=== PATIENT | female | born 1960 | race Caucasian/White ===

== ENCOUNTER 2020-01-12 12:57 | Emergency (ER) | payer BC, OTHER ==
[~2020-01-12] VITALS: Ht 154.9 cm; Wt 58.1 kg
[2020-01-12 13:04] VITALS: BP 124/68
--- NOTE | 2020-01-12 13:53 | NUR ---
Patient discharged to home in stable condition. Written and verbal after care instructions given. Patient verbalizes understanding of instruction. Pt ambulatory with a steady gait w/ an aide of crutches
== END 2020-01-12 13:53 | disposition home or self-care (01) ==
LOC: ER 13:09
DX: S92.352A Displaced fracture of fifth metatarsal bone, left foot, initial encounter for closed fracture (principal); G43.909 Migraine, unspecified, not intractable, without status migrainosus; I10 Essential (primary) hypertension; E78.5 Hyperlipidemia, unspecified; J45.909 Unspecified asthma, uncomplicated; Z98.890 Other specified postprocedural states; W22.8XXA Striking against or struck by other objects, initial encounter; Y93.89 Activity, other specified; Y92.89 Other specified places as the place of occurrence of the external cause; Y99.8 Other external cause status
CPT/HCPCS: 73660-TC

== ENCOUNTER 2021-06-13 12:58 | Emergency (ER) | payer BC, OTHER ==
[~2021-06-13] VITALS: Ht 154.9 cm; Wt 53.1 kg
[2021-06-13] MEDS ORDERED: TDAP [DIPH/PERTUSSIS/TET] 0.5 ML VIAL IM ONE ×3 (13:30→13:48)
--- NOTE | 2021-06-13 14:57 | NUR ---
Left Forearm cleaned w/NS- Steri- strip applied and dressed w/non adaptic covered with bandage and secured w/netting. Gor Discharge- ACI given. Patient discharged to home in stable condition. Written and verbal after care instructions given. Patient verbalizes understanding of instruction.
[2021-06-13 14:58] VITALS: BP 116/54
== END 2021-06-13 14:59 | disposition home or self-care (01) ==
LOC: ER 13:02
DX: S51.812A Laceration without foreign body of left forearm, initial encounter (principal); S09.90XA Unspecified injury of head, initial encounter; G43.909 Migraine, unspecified, not intractable, without status migrainosus; I10 Essential (primary) hypertension; E78.5 Hyperlipidemia, unspecified; J45.909 Unspecified asthma, uncomplicated; Z98.890 Other specified postprocedural states; W01.198A Fall on same level from slipping, tripping and stumbling with subsequent striking against other object, initial encounter; Y93.01 Activity, walking, marching and hiking; Y92.89 Other specified places as the place of occurrence of the external cause; Y99.8 Other external cause status
CPT/HCPCS: 70450-TC; 72125-TC; 90715

== ENCOUNTER 2021-10-09 14:16 | Emergency (ER) | payer BC, OTHER ==
[~2021-10-09] VITALS: Ht 152.4 cm; Wt 53.5 kg
--- NOTE | 2021-10-09 14:40 | NUR ---
BIBS W/ C/O RIGHT ARM AND RIGHT HIP PAIN, S/P GLF. PER PATIENT, SHE WAS WALKING FROM BATHROOM TO BEDROOM WHEN SHE FELL. DENIES HITTING HEAD AND DENIES LOC.
--- NOTE | 2021-10-09 14:42 | NUR ---
TO ER BED 10, PATIENT AMBULATORY.
--- NOTE | 2021-10-09 14:58 | NUR ---
DR SIERRA AT BEDSIDE W/ PATIENT.
[2021-10-09] MEDS ORDERED: KETOROLAC TROMETHAMINE INJ 30 MG/ML VIAL ONE (15:09)
[2021-10-09] MEDS ORDERED: KETOROLAC TROMETHAMINE INJ 60 MG/2 ML VIAL IM ONE (15:30)
[2021-10-09 16:08] VITALS: BP 130/80
== END 2021-10-09 16:26 | disposition home or self-care (01) ==
LOC: ER 14:27
DX: S40.011A Contusion of right shoulder, initial encounter (principal); S50.11XA Contusion of right forearm, initial encounter; R10.2 Pelvic and perineal pain; G43.909 Migraine, unspecified, not intractable, without status migrainosus; E78.5 Hyperlipidemia, unspecified; J45.909 Unspecified asthma, uncomplicated; Z87.442 Personal history of urinary calculi; W18.30XA Fall on same level, unspecified, initial encounter; Y93.01 Activity, walking, marching and hiking; Y92.89 Other specified places as the place of occurrence of the external cause; Y99.8 Other external cause status
CPT/HCPCS: 72020; 72170; 73030; 73090; 96372; 99284; J1885

== ENCOUNTER 2023-01-02 13:41 | Emergency (ER) | payer BC, MEDICAID ==
[~2023-01-02] VITALS: Ht 154.9 cm; Wt 54.4 kg
[2023-01-02 14:08] VITALS: BP 135/95; TEMP 98.1; O2SAT 98
[2023-01-02] MEDS ORDERED: LIDO15CR11 TP (15:47)
== END 2023-01-02 15:55 | disposition home or self-care (01) ==
LOC: ER 13:47
DX: M53.3 Sacrococcygeal disorders, not elsewhere classified (principal); I10 Essential (primary) hypertension; E78.5 Hyperlipidemia, unspecified; G43.909 Migraine, unspecified, not intractable, without status migrainosus; J45.909 Unspecified asthma, uncomplicated; Z87.442 Personal history of urinary calculi
CPT/HCPCS: 72192-TC

== ENCOUNTER 2024-01-04 09:16 | Emergency (ER) | payer BC, MEDICAID ==
[~2024-01-04] VITALS: Ht 152.4 cm; Wt 49.0 kg
[~2024-01-04 09:16] MED LIST: LIDO15CR11 TP
[2024-01-04 11:28] VITALS: BP 136/76; TEMP 98.9; O2SAT 98
== END 2024-01-04 11:28 | disposition home or self-care (01) ==
LOC: ER 09:33
DX: S90.112A Contusion of left great toe without damage to nail, initial encounter (principal); I10 Essential (primary) hypertension; G43.909 Migraine, unspecified, not intractable, without status migrainosus; E78.5 Hyperlipidemia, unspecified; J45.909 Unspecified asthma, uncomplicated; Z87.442 Personal history of urinary calculi; Z87.39 Personal history of other diseases of the musculoskeletal system and connective tissue; Z88.8 Allergy status to other drugs, medicaments and biological substances; W01.0XXA Fall on same level from slipping, tripping and stumbling without subsequent striking against object, initial encounter; Y93.01 Activity, walking, marching and hiking; Y92.89 Other specified places as the place of occurrence of the external cause; Y99.8 Other external cause status
CPT/HCPCS: 73660-TC

== ENCOUNTER 2024-08-21 23:25 | Inpatient (IN) | payer BC, MEDICAID ==
[~2024-08-21] VITALS: Ht 152.4 cm; Wt 48.5 kg
[2024-08-22] MEDS: IV NS 0.9% 500 ML BAG IV ONE
[2024-08-22 00:24] LABS: BASOPHILS % (AUTO) 0.3 % (0.0-2.0); HEMATOCRIT 39 % (33-45); HEMOGLOBIN 13.8 g/dL (11.5-14.8); LYMPHOCYTES # (AUTO) 1.1 K/uL (0.8-4.8); LYMPHOCYTES % (AUTO) 11.1 % (20.0-44.0); MEAN CORPUSCULAR HEMOGLOBIN 35 PG (26.0-33.0); MEAN CORPUSCULAR HGB CONC 36 g/dl (31.0-36.0); MEAN CORPUSCULAR VOLUME 98 fL (82-100); MONOCYTES # (AUTO) 0.8 K/uL (0.1-1.30); MONOCYTES % (AUTO) 8.8 % (2.0-12.0); NEUTROPHILS # (AUTO) 7.7 K/uL (1.8-8.9); NEUTROPHILS % (AUTO) 79.8 % (43.0-81.0); PLATELET COUNT (AUTO) 180 K/uL (150-450); RED BLOOD CELL COUNT(AUTO) 3.98 MIL/uL (4.0-5.2); WHITE BLOOD COUNT (AUTO) 9.6 K/uL (4.3-11.0)
[2024-08-22] MEDS: ASPIRIN 325 MG TABLET PO ONE (01:00)
[2024-08-22 01:01] LABS: CALCIUM, SERUM 9.5 mg/dL (8.5-10.1); CARBON DIOXIDE 27 mmol/L (21-32); CHLORIDE 101 mmol/L (98-107); CREATININE 0.8 mg/dL (0.6-1.3); GLUCOSE 76 mg/dL (74-106); INR 1.01 (0.91-1.10); PARTIAL THROMBOPLASTIN TIME 28.2 SEC (24.3-34.3); POTASSIUM 3.8 mmol/L (3.5-5.1); PROTHROMBIN TIME 10.7 SECS (9.2-11.1); SODIUM SERUM 137 mmol/L (136-145); UREA NITROGEN, BLOOD 22 mg/dL (7-18)
[2024-08-22 01:07] LABS: ALANINE AMINOTRANSFERASE 65 U/L (12-78); ALBUMIN 3.4 g/dL (3.4-5.0); ALKALINE PHOSPHATASE 47 U/L (46-116); ASPARTATE AMINOTRANSFERASE 234 U/L (15-37); BILIRUBIN,DIRECT 0.2 mg/dL (0.0-0.2); BILIRUBIN,TOTAL 0.8 mg/dL (0.2-1.0)
[2024-08-22] MEDS ORDERED: ASPIRIN 325 MG TABLET ONE (01:25)
[2024-08-22] MEDS ORDERED: MORPHINE SULFATE INJ 2 MG/ML DISP.SYRIN ONE (02:19)
[2024-08-22] MEDS: MORPHINE SULFATE INJ 2 MG/ML DISP.SYRIN IV ONE (02:25)
[2024-08-22] MEDS ORDERED: MAGNESIUM HYDROXIDE 30 ML UDC PO PRN (02:30)
[2024-08-22] MEDS ORDERED: MAG HYDROX/AL HYDROX/SIMETH 30 ML UDC PO PRN (02:30)
[2024-08-22] MEDS ORDERED: Z GUARD REMEDY 4 OZ OINT TP PRN (02:30)
[2024-08-22] MEDS ORDERED: ONDANSETRON HCL/PF 4 MG/2 ML VIAL IVP PRN (02:30)
[2024-08-22] MEDS ORDERED: GABA-536 PO (04:18)
[2024-08-22] MEDS: IV NS 0.9% 1,000 ML IV SCH (04:23)
[2024-08-22] MEDS ORDERED: DIVA-76 PO (05:27)
[2024-08-22] MEDS ORDERED: METO25TA4 PO (05:27)
[2024-08-22] MEDS ORDERED: SIMV-49 PO (05:27)
[2024-08-22] MEDS ORDERED: LEVO75TA7 PO (05:27)
[2024-08-22] MEDS: ACETAMINOPHEN 325 MG TABLET PO PRN (06:15)
[2024-08-22 07:30] VITALS: BP 117/54; TEMP 97.9; O2SAT 97
[2024-08-22 07:50] LABS: BASOPHILS % (AUTO) 0.5 % (0.0-2.0); EOSINOPHILS % (AUTO) 0.1 % (0.0-6.0); HEMATOCRIT 34 % (33-45); LYMPHOCYTES # (AUTO) 1.1 K/uL (0.8-4.8); LYMPHOCYTES % (AUTO) 17.1 % (20.0-44.0); MEAN CORPUSCULAR HEMOGLOBIN 35 PG (26.0-33.0); MEAN CORPUSCULAR HGB CONC 35 g/dl (31.0-36.0); MEAN CORPUSCULAR VOLUME 98 fL (82-100); MONOCYTES # (AUTO) 0.6 K/uL (0.1-1.30); MONOCYTES % (AUTO) 8.7 % (2.0-12.0); NEUTROPHILS # (AUTO) 4.8 K/uL (1.8-8.9); NEUTROPHILS % (AUTO) 73.6 % (43.0-81.0); PLATELET COUNT (AUTO) 144 K/uL (150-450); RED BLOOD CELL COUNT(AUTO) 3.47 MIL/uL (4.0-5.2); RED CELL DISTRIBUTION WIDTH 13.1 % (11.5-15.0); WHITE BLOOD COUNT (AUTO) 6.6 K/uL (4.3-11.0)
[2024-08-22 07:56] LABS: CALCIUM, SERUM 8.9 mg/dL (8.5-10.1); CREATININE 0.6 mg/dL (0.6-1.3); MAGNESIUM 2.2 mg/dL (1.8-2.4); PHOSPHORUS 3.2 mg/dL (2.5-4.9); POTASSIUM 3.4 mmol/L (3.5-5.1)
[2024-08-22 08:21] LABS: THYROID STIMULATING HORMONE 0.15 uIU/mL (0.358-3.74)
[2024-08-22] MEDS ORDERED: DIAZ5TAB4 PO (08:30)
[2024-08-22] MEDS ORDERED: BREZTRI IH (08:30)
[2024-08-22] MEDS: PANTOPRAZOLE 40 MG VIAL IV SCH (09:18)
[2024-08-22] MEDS ORDERED: PRED5DRO24 LEFTEYE (09:25)
[2024-08-22 10:00] VITALS: BP 106/56; TEMP 97.9; O2SAT 97
[2024-08-22] MEDS: METOPROLOL SUCCINATE 25 MG TAB.SR.24H PO SCH (10:00)
[2024-08-22 10:01] VITALS: BP 110/86; O2SAT 97
[2024-08-22 10:05] VITALS: BP 84/54; O2SAT 97
[2024-08-22] MEDS: GABAPENTIN 400 MG CAPSULE PO SCH (10:34)
[2024-08-22] MEDS: DIVALPROEX SODIUM 250 MG TABLET.DR PO SCH (10:34)
[2024-08-22] MEDS: LEVOTHYROXINE SODIUM 75 MCG TABLET PO SCH (10:34)
[2024-08-22] MEDS: POTASSIUM CHLORIDE 20 MEQ TAB.PRT.SR PO SCH (11:58)
[2024-08-22] MEDS: prednisoLONE ACET 1% OPHT DROP 5 ML BOTTLE OP SCH (13:27)
[2024-08-22 16:00] VITALS: BP 113/88; TEMP 97.7; O2SAT 100
[2024-08-22] MEDS: SIMVASTATIN 20 MG TABLET PO SCH (17:17)
[2024-08-22 17:47] LABS: APPEARANCE,URINE CLEAR (CLEAR); BILIRUBIN,URINE 1+ (NEGATIVE); BLOOD, URINE TRACE-INTA Ery/uL (NEGATIVE); COLOR,URINE YELLOW (YELLOW); KETONES,URINE 1+ mg/dL (NEGATIVE); LEUKOCYTE ESTERASE ,URINE NEGATIVE (NEGATIVE); NITRITE, URINE NEGATIVE (NEGATIVE); PROTEIN,URINE TRACE mg/dl (NEGATIVE); UGLUCOSE NEGATIVE (NEGATIVE); UROBILINOGEN,URINE 0.2 EU/dL (0.2)
[2024-08-22 17:55] LABS: ADD URINE CULTURE NO; BACTERIA,URINE Rare /HPF (None Seen); MUCUS,URINE Few /LPF (None Seen); WBC,URINE 0-2 /HPF (0-3)
[2024-08-22 20:00] VITALS: BP 110/73; TEMP 99.1; O2SAT 100
[2024-08-22] MEDS: HYDROCODONE/APAP 5/325MG TABLET PO PRN (21:10)
[2024-08-22] MEDS: DIAZEPAM 5 MG TABLET PO PRN (23:05)
[2024-08-23 06:00] VITALS: BP_SYST 126; BP_SYST 133; BP_SYST 147; BP_DIAS 71; BP_DIAS 72; BP_DIAS 74; TEMP 97.9; O2SAT 94
[2024-08-23 07:27] LABS: ALBUMIN 2.5 g/dL (3.4-5.0); BILIRUBIN,TOTAL 0.3 mg/dL (0.2-1.0); CALCIUM, SERUM 8.6 mg/dL (8.5-10.1); CREATININE 0.6 mg/dL (0.6-1.3); PHOSPHORUS 2.5 mg/dL (2.5-4.9); POTASSIUM 3.5 mmol/L (3.5-5.1); TOTAL PROTEIN, SERUM 5.8 g/dL (6.4-8.2)
[2024-08-23 07:41] LABS: BASOPHILS % (AUTO) 0.6 % (0.0-2.0); EOSINOPHILS # (AUTO) 0.2 K/uL (0.0-0.7); EOSINOPHILS % (AUTO) 3.5 % (0.0-6.0); HEMATOCRIT 33 % (33-45); HEMOGLOBIN 11.6 g/dL (11.5-14.8); LYMPHOCYTES # (AUTO) 0.9 K/uL (0.8-4.8); LYMPHOCYTES % (AUTO) 19.7 % (20.0-44.0); MEAN CORPUSCULAR HEMOGLOBIN 34 PG (26.0-33.0); MEAN CORPUSCULAR HGB CONC 35 g/dl (31.0-36.0); MEAN CORPUSCULAR VOLUME 97 fL (82-100); MONOCYTES # (AUTO) 0.5 K/uL (0.1-1.30); MONOCYTES % (AUTO) 10.7 % (2.0-12.0); NEUTROPHILS # (AUTO) 3.1 K/uL (1.8-8.9); NEUTROPHILS % (AUTO) 65.5 % (43.0-81.0); PLATELET COUNT (AUTO) 140 K/uL (150-450); RED BLOOD CELL COUNT(AUTO) 3.37 MIL/uL (4.0-5.2); RED CELL DISTRIBUTION WIDTH 13.1 % (11.5-15.0); WHITE BLOOD COUNT (AUTO) 4.7 K/uL (4.3-11.0)
[2024-08-23 08:00] VITALS: BP 114/60; TEMP 97.9; O2SAT 98
[2024-08-23 16:00] VITALS: BP 152/65; TEMP 98.4; O2SAT 99
[2024-08-23] MEDS ORDERED: MELOXICAM 7.5 MG TABLET PO PRN (18:00)
[2024-08-23] MEDS: BISACODYL (5 MG) 5 MG TABLET.DR PO PRN (18:25)
[2024-08-23 20:00] VITALS: BP 129/50; TEMP 98.2; O2SAT 100
[2024-08-24 08:00] VITALS: BP 136/55; TEMP 97.9; O2SAT 99
[2024-08-24 09:09] VITALS: BP 136/65
[2024-08-24] MEDS: PANTOPRAZOLE 40 MG TABLET.DR PO SCH (09:09)
[2024-08-24] MEDS: NA PHOS,M-B/NA PHOS,DI-BA 1 EA ENEMA RC ONE (10:00)
== END 2024-08-24 16:00 | disposition home health service (06) | DRG 557 ==
LOC: ER 23:30 → TELE 08-22 02:35 → MED 08-23 11:16
PROVIDERS: ADMIT Internal Medicine; ATTEND Internal Medicine
DX: M62.82 Rhabdomyolysis (principal); I21.A1 Myocardial infarction type 2; N17.0 Acute kidney failure with tubular necrosis; E78.5 Hyperlipidemia, unspecified; I10 Essential (primary) hypertension; J45.909 Unspecified asthma, uncomplicated; Z87.442 Personal history of urinary calculi; E87.6 Hypokalemia; R55 Syncope and collapse; T50.A95A Adverse effect of other bacterial vaccines, initial encounter; R25.1 Tremor, unspecified; R94.6 Abnormal results of thyroid function studies; W18.2XXA Fall in (into) shower or empty bathtub, initial encounter; Y93.E1 Activity, personal bathing and showering; Y92.002 Bathroom of unspecified non-institutional (private) residence as the place of occurrence of the external cause
CPT/HCPCS: 36415; 70450-TC; 71045-TC; 72125-TC; 72128-TC; 72131-TC; 80048-TC; 80053-TC; 80076-TC; 81001; 82550-TC; 82553; 83735-TC; 84100-TC; 84439-TC; 84443-TC; 84484-TC; 85025-TC; 85730-TC; 87081-TC; 93307-TC; 97110-TC; 97116-TC; 97530-TC; 97535-TC; A4223; G0378; J2270; J2470; J7030; J7040